=== PATIENT | male | born 1980 ===

== ENCOUNTER 2016-08-09 12:26 | Emergency (ER) | payer OTHER ==
[~2016-08-09] VITALS: Ht 175.3 cm; Wt 95.3 kg
[2016-08-09] MEDS ORDERED: LAMICTAL150 M1 PO (12:47)
[2016-08-09] MEDS ORDERED: FLOMAX0.4 M1 PO (12:47)
[2016-08-09] MEDS ORDERED: CLONAZEPAM0.5 M2 PO (12:48)
[2016-08-09] MEDS ORDERED: PROZAC20 M2 PO (12:48)
[2016-08-09] MEDS ORDERED: DOXYCYCLINE HYC50 M1 PO (12:49)
[2016-08-09] MEDS ORDERED: BUSPIRONE HCL7.5 M1 PO (12:49)
[2016-08-09] MEDS ORDERED: FINASTERIDE5 M1 PO (12:49)
[2016-08-09] MEDS ORDERED: LIPITOR40 M1 PO (12:50)
--- NOTE | 2016-08-09 13:23 | ED GI/GU/ABDOMINAL COMPLAINT ---
History of Present Illness General Chief Complaint: Male Genitourinary Problems Stated Complaint: UNABLE TO URINATE Source: patient, old records Exam Limitations: no limitations Vital Signs & Intake/Output Vital Signs & Intake/Output Vital Signs Date Time Temp Pulse Resp B/P B/P Pulse O2 O2 Flow FiO2 Mean Ox Delivery Rate 08/09 1455 77 18 139/83 96 Room Air 08/09 1343 99 Room Air 08/09 1232 97.4 89 20 120/83 98 Room Air Allergies Coded Allergies: No Known Allergies (08/09/16) Reconcile Medications Atorvastatin Calcium (Lipitor) 40 MG TABLET 1 TAB PO DAILY CHOLESTEROL ( Reported) Buspirone HCl 7.5 MG TABLET 1 TAB PO BID DEPRESSION (Reported) Clonazepam 0.5 MG TABLET 0.5 TAB PO TID DEPRESSION (Reported) Doxycycline Hyclate 50 MG CAPSULE 1 CAP PO BID SKIN (Reported) Finasteride 5 MG TABLET 1 TAB PO DAILY PROSTATE (Reported) Fluoxetine HCl (Prozac) 20 MG CAPSULE 1 CAP PO BID DEPRESSION (Reported) Lamotrigine (Lamictal) 150 MG TABLET 1 TAB PO BID MENTAL HEALTH (Reported) Tamsulosin HCl (Flomax) 0.4 MG CAP.ER.24H 1 CAP PO QPM URINE (Reported) Triage Note: PT TO ED C/O DIFFICULTY URINATING. PT HAD PROCEDURE WITH DR HOWARD LAST SUNDAY. PT HAS F/U WITH HER NEXT . STATES HE CONTINUES TO HAVE DIFFICULTY URINATING WELL "BLOATING". Triage Nurses Notes Reviewed? yes Onset: Abrupt Duration: day(s): (1), better Timing: recent history Quality/Severity: aching (BLOATING) Severity Numbers: 5 Location: suprapubic Radiation: no radiation Activities at Onset: none Prior Abdominal Problems: none No Modifying Factors: none Associated Symptoms: DENIES HPI: 36-year-old male with history of anxiety presents to ER for evaluation complaining of urinary retention difficulty urinating since last night. He had a procedure as an outpatient cystoscopy performed by Dr. Howard last week and has a follow-up with her on August 23. He states that last night he began to have urinary retention he denies dysuria urgency frequency hematuria. No pain to his penis or scrotum no abdominal pain nausea vomiting fever chills. No history of similar symptoms in the past. He is currently resting without any complaints he was able to urinate this morning without difficulty he has not called his urologist regarding the symptoms. (KEVIN JUNIOR) Past History Travel History Traveled to [place] past 21 day No Medical History Any Pertinent Medical History? see below for history Neurological: seizure Psychiatric: anxiety, depression, mood disorder Surgical History Surgical History: non-contributory Psychosocial History What is your primary language Lithuanian Tobacco Use: Current Daily Use Daily Tobacco Use Amount/Type: => 5 Cigarettes daily ETOH Use: denies use Illicit Drug Use: denies illicit drug use Family History Hx Contributory? No (KEVIN JUNIOR) Review of Systems Review of Systems Constitutional: Reports: see HPI. All Other Systems: Reviewed and Negative Comments Review of systems: See HPI, All other systems negative. Constitutional, no chills no fever, no malaise HEENT: No visual changes no sore throat no congestion Cardiovascular: No chest pain , no palpitation Skin: no rashes, no change in skin Respiratory: No dyspnea no cough no sputum GI: No nausea no vomiting, no diarrhea, : No dysuria No hematuria, no frequency, no discharge Muscle skeletal: No joint pain, no back pain, no neck pain, Neurologic: no headache Psych: No stress Heme/endocrine: No bruising Immunology: No lymphadenopathy (KEVIN JUNIOR) Physical Exam Physical Exam General Appearance: well developed/nourished, awake, anxious Gastrointestinal: normal bowel sounds, soft, non-tender Comments: Well-developed well-nourished patient in no apparent distress. HEENT: Atraumatic, extraocular motion intact Neck: Supple, FROM Back: FROM Cardiovascular: Regular rate and rhythms no murmurs rubs or gallops, Respiratory: No respiratory distress. Patient speaking in full complete sentences. Breath sounds clear to auscultation bilaterally: NO W/R/R ABD: Soft nontender no rebound or guarding normal bowel sounds Extremities: full range of motion Neuro: awake, alert, and oriented to person, place and time. There were no obvious focal neurologic abnormalities. Skin: Warm & dry;No appreciable rash on exposed skin Psych: Mood affect normal, normal memory normal judgment. Core Measures ACS in differential dx? No Severe Sepsis Present: No Septic Shock Present: No (KEVIN JUNIOR) Progress Differential Diagnosis: orchitis, prostatitis, perforated viscous, pyelonephritis, STD, ureterolithiasis, urinary retention, urethritis, UTI/pyelo, MALIGNANCY Plan of Care: Orders Procedure Date/time Status CULTURE,URINE 08/09 1254 Active URINALYSIS 08/09 1254 Complete CBC WITHOUT DIFFERENTIAL 08/09 1254 Complete BASIC METABOLIC PANEL 08/09 1254 Complete Laboratory Tests 08/09/16 1313: Urine Color YEL, Urine Clarity CLEAR, Urine pH 7.0, Ur Specific [place] 1.015, Urine Protein TRACE H, Urine Ketones NEG, Urine Nitrite NEG, Urine Bilirubin NEG, Urine Urobilinogen 0.2, Ur Leukocyte Esterase TRACE H, Ur Microscopic SEDIMENT EXAMINED, Urine RBC RARE, Urine WBC 10-15 H, Ur Epithelial Cells OCCAS , Urine Mucus PACKD H, Urine Hemoglobin NEG, Urine Glucose NEG 08/09/16 1311: Anion Gap 9, Estimated GFR > 60, BUN/Creatinine Ratio 16.3, Glucose 93, Calcium 9.2, CBC w Diff NO MAN DIFF REQ, RBC 5.00, MCV 83.4, MCH 28.0, RDW 13.6, MPV 8.9 , Gran % 53.1, Lymphocytes % 37.0, Monocytes % 8.1, Eosinophils % 0.9, Basophils % 0.9, Absolute Granulocytes 3.9, Absolute Lymphocytes 2.7, Absolute Monocytes 0.6, Absolute Eosinophils 0.1, Absolute Basophils 0.1, PUBS MCHC 33.6 Microbiology 08/09 1313 URINE ROUT: Urine Culture - RECD Labs ordered old records reviewed patient was able to urinate without any difficulty residual bladder scan revealed only 8ML's remaining, call placed to his urologist CASE D/W DR HOWARD AGREES WITH PLAN ADVISE DTO HAVE PT FOLLOW UP WITH HER THIS WEEK I discussed with the patient at length all of their results. 1515 pt refusing to wait for urology to call back had an extensive conversation regarding need for close follow up with their urologist his week as well as return precautions. I an patient now believes that his lack of urine output could've possibly been from not drinking enough fluid. Swered all of their questions, they feel comfortable with the plan and follow-up care. (JOHN MAIN,KEVIN) Initial ED EKG: none (KEVIN JUNIOR) Departure Departure Disposition: HOME OR SELF CARE Condition: Stable Clinical Impression Primary Impression: Urinary retention Referrals: JOE GARG,NOAH LERMA MD,DELROY Additional Instructions: follow up with your urologist dr howard today. return at anytime sooner if you develop difficulyt urininating, abdominal pain, fever, chills or any other concerns Departure Forms: Customer Survey General Discharge Information (KEVIN JUNIOR) PA/CHAIN HOIST OPERATOR Co-Sign Statement Statement: ED Attending supervision documentation- [] I saw and evaluated the patient. I have also reviewed all the pertinent lab results and diagnostic results. I agree with the findings and the plan of care as documented in the PA's/CHAIN HOIST OPERATOR's documentation. [X] I have reviewed the ED Record and agree with the PA's/CHAIN HOIST OPERATOR's documentation. [] Additions or exceptions (if any) to the PAs/CHAIN HOIST OPERATOR's note and plan are summarized below: [] (VAL GARG,CASPER)
[2016-08-09 13:25] LABS: ABSOLUTE BASOPHIL COUNT 0.1 /CUMM (0.0-0.2); ABSOLUTE EOSINOPHIL COUNT 0.1 /CUMM (0.0-0.7); ABSOLUTE GRANULOCYTE CT 3.9 /CUMM (1.4-6.5); ABSOLUTE LYMPH COUNT 2.7 /CUMM (1.2-3.4); ABSOLUTE MONOCYTE COUNT 0.6 /CUMM (0.10-0.60); BASOPHIL % 0.9 % (0.0-2.0); EOSINOPHIL % 0.9 % (0-5); GRANULOCYTE % 53.1 % (42.2-75.2); HEMATOCRIT 41.7 % (42-52); MEAN CORPUSCULAR HGB CONC 33.6 G/DL (33.0-37.0); MEAN CORPUSCULAR VOLUME 83.4 FL (80.0-94.0); MEAN PLATELET VOLUME 8.9 FL (7.4-10.4); PLATELET COUNT 226 /CUMM (130-400); RBC DISTRIBUTION WIDTH 13.6 % (11.5-14.5); WHITE BLOOD CELL COUNT 7.3 /CUMM (4.8-10.8)
[2016-08-09 14:55] VITALS: BP 139/83
== END 2016-08-09 15:24 ==
LOC: ERH 12:26
PROVIDERS: Physician Assistant Medical
DX: R33.9 Retention of urine, unspecified (principal)
CPT/HCPCS: 81001; 87086